=== PATIENT | female | born 1970 | race Caucasian/White ===

== ENCOUNTER 2024-08-22 11:25 | Day surgery (SDC) | payer OTHER ==
[~2024-08-22 11:25] MED LIST: Sodium Chloride 0.9% 10 ML Syringe FLUSH PRN
[2024-08-22] MEDS: Lactated Ringers 1,000 ML IV SCH (11:30)
[2024-08-22] MEDS ORDERED: Midazolam 1 MG/ML 2 ML SDV ONE (12:26)
[2024-08-22] MEDS ORDERED: Propofol 200 MG/20 ML SDV ONE ×2 (12:27→13:00)
== END 2024-08-22 14:42 | disposition home or self-care (01) ==
LOC: KA.SDS 11:25
PROVIDERS: ATTEND Family Medicine
DX: K63.5 Polyp of colon (principal); K57.30 Diverticulosis of large intestine without perforation or abscess without bleeding; K64.8 Other hemorrhoids; K64.4 Residual hemorrhoidal skin tags; F33.42 Major depressive disorder, recurrent, in full remission
CPT/HCPCS: 00811; 81025; J2250; J2704; J3490; J7120